=== PATIENT | male | born 1990 | race African-American/Black ===

== ENCOUNTER 2017-01-26 21:08 | Emergency (ER) | payer OTHER ==
[~2017-01-26] VITALS: Ht 182.9 cm; Wt 63.5 kg
--- NOTE | ~2017-01-26 | EKG ---
[address] [address] ELECTROCARDIOGRAM REPORT Name: ELIO ODEN [id number] Admission: 01/26/17 Attend Phys: Discharge: 01/26/17 Date of : [birth year] Report #: [id number] THIS REPORT FOR: //name// [facility] ED Test Date: 2017-01-26 Test Time: 21:25:46 Pat Name: ELIO ODEN Department: Room: Gender: M Latcher: : 1990 Requested By: Rene Pereyra Order Number: [id number] MD: Michael Jorge Measurements Intervals [place] Rate: 91 P: 56 SD: 151 QRS: 33 QRSD: 91 T: 44 QT: 362 QTc: 446 Interpretive Statements Sinus rhythm Early repolarization No previous ECG available for comparison Electronically Signed On 01-28-2017 8:37:40 CDT by Michael Jorge [email or web address] <ELECTRONICALLY SIGNED> By: Michael Jorge MD, [facility] 01/28/17 0837 2125 24 Michael Jorge MD, FACC /EPI
[2017-01-26 23:10] VITALS: BP 107/67
== END 2017-01-26 23:20 | disposition home or self-care (01) ==
LOC: ER 21:08
DX: F45.8 Other somatoform disorders (principal); E86.0 Dehydration; R07.89 Other chest pain; F17.210 Nicotine dependence, cigarettes, uncomplicated